=== PATIENT | female | born 1980 | race Caucasian/White ===

== ENCOUNTER 2016-12-06 16:08 | Inpatient (IN) | payer MEDICAID ==
[~2016-12-06] VITALS: Ht 142.2 cm; Wt 64.8 kg
[~2016-12-06 16:08] MED LIST: FAMO20TA18 PO; PRENAT PO; UDMYL PO
[2016-12-06 16:25] VITALS: Ht 142.2 cm; Wt 64.8 kg
--- NOTE | 2016-12-06 17:04 | RADRPT ---
PROCEDURE: US OB. CLINICAL INDICATION: Size and dates , IUGR TECHNIQUE: Multiple sonographic images of the pelvis and gravid uterus were obtained. The images were reviewed on a PACS workstation. COMPARISON: 10/18/2016 FINDINGS: There is a single viable intrauterine gestation. Cardiac activity is present with 123 beats per min mashpee. There is a vertex presentation. The placenta is posterior fundal. There is no evidence for an abruption or placenta previa. There is a normal amount of amniotic fluid with an DEWEY = 15.9 cm. Measurements were made in order to determine age. The results are as follows: BPD =8.9 cm HC =32.2 cm AC =33.4 cm FL =7.2 cm Estimated gestational age of approximately 36 weeks and 4 days based on ultrasound measurements. Clinical age: 37 weeks and 1 day. The estimated date of delivery is 12/30/16, based on ultrasound measurements. The EFW = 3080 g, 52.3%, based on LMP age. RPTAT: AA IMPRESSION: Single viable intrauterine gestation of approximately 36 weeks and 4 days based on ultrasound measu rements. .Ryan Sherman MD, Date Time Electronically viewed and signed by .Ryan Sherman MD, on 12/06/2016 17:03 .S/
--- NOTE | 2016-12-06 17:04 | RADRPT ---
PROCEDURE: US OB biophysical profile. CLINICAL INDICATION: decreased movements, IUGR TECHNIQUE: Multiple sonographic images of the pelvis were obtained. The images were reviewed on a PACS workstation. COMPARISON: 10/18/2016 FINDINGS: There is a single viable intrauterine gestation. Cardiac activity is present with 123 beats per min douglas. There is a vertex presentation. The placenta is posterior fundal. There is no evidence of placental abruption. There is a normal amount of amniotic fluid with an DEWEY = 15.9 cm. Biophysical profile: movement 2/2 tone 2/2. breathing 2/2 DEWEY 2/2 Total 05/31 RPTAT: AA . IMPRESSION: Normal biophysical profile. . .Ryan Sherman MD, MD Date Time Electronically viewed and signed by .Ryan Sherman MD, MD on 12/06/2016 17:04 .S/
[2016-12-06] MEDS: LACTATED RINGER'S 1,000 ML IV SCH ×2 (18:15→21:21)
[2016-12-06 18:50] LABS: BASOPHILS % 0.4 % (0.0-2.0); EOSINOPHILS # 0.1 10^3/ul (0.0-0.5); EOSINOPHILS % 0.9 % (0.0-7.0); HEMATOCRIT 34.2 % (37.0-47.0); HEMOGLOBIN 11.8 g/dl (12.0-16.0); LYMPHOCYTES # 1.3 10^3/ul (0.8-2.9); LYMPHOCYTES % 14.6 % (15.0-51.0); MEAN CORPUSCULAR HEMOGLOBIN 31.2 pg (29.0-33.0); MEAN CORPUSCULAR HGB CONC 34.3 g/dl (32.0-37.0); MEAN CORPUSCULAR VOLUME 90.9 fl (82.0-101.0); MEAN PLATELET VOLUME 7.8 fl (7.4-10.4); MONOCYTE # 0.5 10^3/ul (0.3-0.9); MONOCYTES % 6.1 % (0.0-11.0); NEUTROPHIL # 6.7 10^3/ul (1.6-7.5); PLATELET COUNT 210 10^3/UL (140-440); RED BLOOD COUNT 3.77 10^6/ul (4.20-5.40); RED CELL DISTRIBUTION WIDTH 13.8 % (11.5-14.5); UNCORRECTED WBC 8.6 10^3/ul (4.8-10.8); WHITE BLOOD COUNT 8.6 10^3/ul (4.8-10.8)
[2016-12-06 19:01] LABS: CONDITION 1
[2016-12-06 19:02] LABS: INR 0.91; PARTIAL THROMBOPLASTIN TIME 24.9 Sec (25.0-35.0); PROTIME 12.2 Sec (12.2-14.2)
--- NOTE | 2016-12-06 20:59 | TRIAGE ---
OB Triage Datetime Report Generated by CPN: 12/06/2016 20:58 Datetime: 12/06/2016 20:55 Labor Evaluation Frequency: 2-4 Monitor Mode: External Duration (sec)2399: 70-90 Pattern: Normal: <= 5 Contractions in 10 Minutes Heart Rate FHR Baseline Rate: 140 Monitor Mode: External US FHR Baseline Changes: No Baseline Change Variability: Moderate 6-25 bpm Decelerations: None Category: Category I Datetime: 12/06/2016 20:24 Vaginal Exam Dilatation (cms): 1.0 Effacement (%): 80 Station: -1 Exam By: DR. MONROY Lie 'A': Unable to Assess Datetime: 12/06/2016 20:00 Labor Evaluation Frequency: 90-110 Monitor Mode: External Duration (sec)2399: 2-4 Pattern: Normal: <= 5 Contractions in 10 Minutes Heart Rate FHR Baseline Rate: 135 Monitor Mode: External US FHR Baseline Changes: No Baseline Change Variability: Moderate 6-25 bpm Accelerations: 15X15 Decelerations: None Category: Category I Datetime: 12/06/2016 19:31 Maternal Assessment Level of Consciousness: Fully Conscious DTR's/Clonus: DTRs 2+; No Clonus Headache: Denies Blurred Vision: No Respiratory Effort: Unlabored; Regular Rhythm; Equal Expansion Breath Sounds, Left: Clear and Equal Breath Sounds, Right: Clear and Equal Nausea/Vomiting: Denies RUQ Epigastric Pain: Denies Facial Edema: None Fall Risk Assessment History of Falling: (0) No Secondary Diagnosis: (0) No Ambulatory Aid: (0) Bedrest/Nurse Assist IV Therapy: (20) Yes Gait: (0) Normal/Bedrest/Immobile Mental Status: (0) Oriented to Own Ability Fall Score: 20 Fall Risk Score Definition: No Risk: No action required Datetime: 12/06/2016 19:30 Labor Evaluation Frequency: 2-4 Monitor Mode: External Duration (sec)2399: 80-100 Pattern: Normal: <= 5 Contractions in 10 Minutes Heart Rate FHR Baseline Rate: 135 Monitor Mode: External US FHR Baseline Changes: No Baseline Change Variability: Moderate 6-25 bpm Accelerations: 15X15 Decelerations: None Category: Category I Pain Presence: None/Denies Pain Type: N/A Pain Assessment Comments: pt. denies having pain, denies feeling uc's Datetime: 12/06/2016 18:28 Labor Evaluation Frequency: 23-5 Monitor Mode: External Duration (sec)2399: 50-70 Pattern: Normal: <= 5 Contractions in 10 Minutes Resting Tone [place]: Relaxed Heart Rate FHR Baseline Rate: 135 Monitor Mode: External US Variability: Moderate 6-25 bpm Accelerations: 10X10 Decelerations: None Category: Category I Pain Assessment Pain Scale: 0 Pain Presence: None/Denies Pain Type: N/A Pain Goal: 3 Pain Relief Measures: Comfort Measures Datetime: 12/06/2016 17:58 Stage of : OB Triage Datetime: 12/06/2016 17:40 Labor Evaluation Frequency: 4-6 Monitor Mode: External Duration (sec)2399: 50-70 Pattern: Normal: <= 5 Contractions in 10 Minutes Resting Tone [place]: Relaxed Contraction Comments: DENIES FEELING Heart Rate FHR Baseline Rate: 125 Monitor Mode: External US Variability: Moderate 6-25 bpm Accelerations: 10X10 Decelerations: None Category: Category I Pain Assessment Pain Scale: 0 Pain Presence: None/Denies Pain Type: N/A Pain Goal: 3 Pain Relief Measures: Comfort Measures Datetime: 12/06/2016 16:34 Stage of : OB Triage Datetime: 12/06/2016 16:21 Stage of : OB Triage Assessment Type: Triage Maternal Assessment Level of Consciousness: Fully Conscious DTR's/Clonus: DTRs 2+; No Clonus Headache: Denies Blurred Vision: No Respiratory Effort: Unlabored; Regular Rhythm; Equal Expansion Breath Sounds, Left: Clear and Equal Breath Sounds, Right: Clear and Equal Nausea/Vomiting: Denies RUQ Epigastric Pain: Denies Lower Extremities Edema: None Degree: None Upper Extremities Edema: None Degree: None Facial Edema: None Temperature Route: Axillary Fall Risk Assessment History of Falling: (0) No Secondary Diagnosis: (0) No Ambulatory Aid: (0) Bedrest/Nurse Assist IV Therapy: (0) No Gait: (0) Normal/Bedrest/Immobile Mental Status: (0) Oriented to Own Ability Fall Score: 0 Fall Risk Score Definition: No Risk: No action required Labor Evaluation Frequency: X1 Monitor Mode: External Duration (sec)2399: 50 Quality: Mild Pattern: Normal: <= 5 Contractions in 10 Minutes Intensity IUP (mmHg): DENIES FEELING Resting Tone [place]: Relaxed Heart Rate FHR Baseline Rate: 125 Monitor Mode: External US Variability: Moderate 6-25 bpm Accelerations: 15X15 Decelerations: None Category: Category I Pain Assessment Pain Scale: 0 Pain Presence: None/Denies Pain Goal: 3 Pain Relief Measures: Comfort Measures Datetime: 12/06/2016 16:20 Time of Arrival: 12/06/2016 16:00 EGA: 37.1 Arrived By: Ambulatory Arrived From: Dr. Office Chief Complaint: SENT FROM DR OFFICE TO R/O IUGR, EFW, BPP Movement: Present Contractions: Denies/Absent Rupture of Membranes: Denies Vaginal Bleeding: None Vaginal Discharge: Present Recent Sexual Intercouse: Denies Abdominal Trauma: Not Applicable Patient Complaints: None Initial Plan: MONITOR, BPP, EFW Datetime: 10/17/2016 23:50 Fall Score: 0 Fall Risk Score Definition: No Risk: No action required Datetime: 10/17/2016 23:14 EGA: 30.1 Datetime: 10/07/2016 01:30 EGA: 28.4 Datetime: 10/07/2016 01:23 Fall Score: 0 Fall Risk Score Definition: No Risk: No action required
[2016-12-06] MEDS ORDERED: METHYLERGONOVINE 0.2 MG INJ IM PRN (21:00)
[2016-12-06] MEDS ORDERED: CARBOPROST 250 MCG INJ IM PRN (21:00)
[2016-12-06] MEDS ORDERED: CEFAZOLIN 2 GM/50 ML (PMX) 50 ML IVPB ONE (21:00)
[2016-12-06] MEDS ORDERED: OXYTOCIN 30 UNITS/LR 500 ML IV PRN (21:00)
[2016-12-06] MEDS ORDERED: OXYTOCIN 30 UNITS/LR 500 ML IV SCH (21:00)
[2016-12-06] MEDS ORDERED: MISOPROSTOL 200 MCG TAB PR PRN (21:00)
[2016-12-06 21:09] VITALS: BP 93/52; PULSE 75; RESP 18
[2016-12-06] MEDS ORDERED: morphine SULFATE/PF (10 MG/10 ML) INJ ONE (22:24)
[2016-12-06] MEDS ORDERED: ONDANSETRON 4 MG INJ ONE (22:49)
[2016-12-06] MEDS ORDERED: KETOROLAC 30 MG INJ ONE (22:49)
[2016-12-06] MEDS ORDERED: METOCLOPRAMIDE 10 MG INJ ONE (22:49)
[2016-12-06] MEDS ORDERED: EPHEDrine SULFATE 50 MG/5 ML SYG ONE (22:50)
[2016-12-06] MEDS ORDERED: OXYTOCIN 30 UNITS/LR 500 ML IV ONE (23:25)
--- NOTE | 2016-12-06 23:27 | HP ---
Date/Time of Note Date/Time of Note DATE: 12/06/16 TIME: 23:26 OB - History Hx of Present Free Text/Dictation @37+wks GA with Hx of previous c.section in labor : 3 Para: 1 Care: Good Care Ultrasounds: Normal mid trimester US Obstetrical Complications: None Medical Complications: None Past Family/Social History * Past Medical, Surgical, Family and Obstetric Histories reviewed from chart. OB Admission Exam Vital Signs Vital Signs Vital Signs Date Time Temp Pulse Resp B/P Pulse Ox O2 Delivery O2 Flow Rate FiO2 12/06/16 21:09 98.1 75 18 93/52 Room Air Physical Exam Abdomen: WNL Extremities: Normal Reflexes: Normal Cervical Dilatation: 1cm Effacement: 75% Station: -1 Membranes: Intact Heart Rate: 140's Accelerations: Accelerations Present Decelerations: No Decelerations Varibility: Moderate Contractions on Admission: < 5 Minutes Apart Last 72 hours Lab Results CBC & BMP 12/06/16 18:15 OB Assessment/Plan Reason for admission: section Plan: Section Other plan: @37+wks GA with Hx of previous c.section in labor STEPHANIE MONROY M.D. Dec 06, 2016 23:27
--- NOTE | 2016-12-06 23:28 | OPR ---
Operative Report Planned Procedure Free Text/Dictation @37+wks GA with Hx of previous c.section in labor Procedure date Dec 06, 2016 Procedure(s) Repeat c/section Performed by: STEPHANIE MONROY M.D. Assisting provider: KIRSTIN LUCAS Anesthesiologist: REAGAN LUA MD Pre-procedure diagnosis @37+wks GA with Hx of previous c.section in labor Anesthesia Type: spinal Procedure Description Under satisfactory [] anesthesia, the patient was prepped and draped and placed in a supine position, tilted to the left. Pfannenstiel incision was made, carried through the subcutaneous tissue. Bleeders brought under control with electrocautery. Fascia incised to the length of the incision. Rectus muscles from the fascia, divided midline. Peritoneum exposed, entered through a transverse incision. Exploration of abdomen revealed gravid uterus. Bladder flap was developed. Transverse incision was made in the lower segment of the uterus. Amniotic sac ruptured. [] amniotic fluid noted. [] Nasal oropharyngeal suction was performed. The baby was handed to the team for immediate attention. The placenta was delivered manually intact. Uterine cavity was cleaned with wet sponge and drainage established. Uterus closed in 2 layers using [] in continuous fashion. Peritoneal cavity irrigated with warm saline. Sponge, needle and instrument count reported to be correct. Abdominal peritoneum closed with [] continuously. Rectus muscle approximated with []. Fascia closed with [], and skin closed with dermoband. Estimated blood loss [600 ]mL. Urine bag contained []mL of urine Post-Procedure Findings: Live Baby [], Apgars [] and [], weight [], position [], [] presentation []cord. Specimen removed: Yes Complications: None Pt Condition post procedure: stable Disposition: PACU Physician Certification I, the undersigned physician, hereby certify that I have discussed the procedure described in this consent form with this patient (or the patient's legal hospital insurance representative), including: * The risk and benefits of the procedure; * Any adverse reactions that may reasonably be expected to occur; * Any alternative efficacious methods of treatment which may be medically viable ; * The potential problems that may occur during recuperation; * Potential for blood transfusion and associated risks/benefits; and * Any research or economic interest I may have regarding this treatment. I further certify that the patient/legally responsible person was encouraged to ask question and that all questions were answered. STEPHANIE MONROY M.D. Dec 06, 2016 23:28
[2016-12-06] MEDS ORDERED: NALOXONE (0.4 MG/ML) INJ IV PRN (23:30)
[2016-12-06] MEDS ORDERED: MEPERIDINE 25 MG INJ IV PRN (23:30)
[2016-12-06] MEDS ORDERED: HYDROmorphONE (0.2 MG/ML) 10ML SYG IV PRN ×3 (23:30)
[2016-12-06] MEDS ORDERED: HYDROmorphONE 1 MG/ML SYG IV PRN ×3 (23:30)
[2016-12-06] MEDS ORDERED: METOCLOPRAMIDE 10 MG INJ IV PRN (23:30)
[2016-12-06] MEDS ORDERED: DIPHENHYDRAMINE 50 MG INJ IV PRN ×2 (23:30)
[2016-12-06] MEDS ORDERED: ONDANSETRON 4 MG INJ IV PRN ×2 (23:30)
--- NOTE | 2016-12-07 00:29 | DELSUM ---
Delivery Summary A-C Datetime Report Generated by CPN: 12/07/2016 00:29 DELIVERY PERSONNEL Aircraft Instrument Mechanic: [place], Ivy Tania MATERNAL INFORMATION Delivery Anesthesia: Spinal Medications in Delivery: SEE ANESTHESIA Estimated Blood Loss (ml): 600 Placenta Cultured: No Maternal Complications: None LABOR SUMMARY EDC: 12/26/2016 00:00 No. Babies in Womb: 1 Attempted: No Labor Anesthesia: None LABOR INFORMATION Reason for Induction: Postterm Oxytocin: N/A Group B Beta Strep: Negative Antibiotics # of Doses: 1 Antibiotics Time of Last Dose: 2246 Steroids Given: None Reason Steroids Not Administered: Not Applicable MEMBRANES Membranes Rupture Method: Artificial Rupture of Membranes: 12/06/2016 23:03 Length of Rupture (hr): 0.02 Amniotic Fluid Color: Clear Amniotic Fluid Amount: Moderate Amniotic Fluid Odor: Normal STAGES OF LABOR Stage 3 hr: 0 Stage 3 min: 1 CSECTION DELIVERY Primary Indication: Repeat Elective CSection Urgency: Non Elective CSection Incidence: Repeat Labor: No Labor Elective: Nonelective CSection Incision: Lower Uterine Transverse BABY A INFORMATION Infant Delivery Date/Time: 12/06/2016 23:04 Method of Delivery: Born in Route : No : N/A Forceps: N/A Vacuum Extraction: N/A Shoulder Dystocia : N/A SHOULDER DYSTOCIA BABY A Delivery Date/Time: 12/06/2016 23:04 PRESENTATION/POSITION BABY A Presentation: Cephalic Cephalic Presentation: Vertex Vertex Position: Left Occipital Anterior Breech Presentation: N/A PLACENTA INFORMATION BABY A Placenta Delivery Time : 12/06/2016 23:05 Placenta Method of Delivery: Manual Removal Placenta Status: Delivered SCORES BABY A Heart Rate 1 min: >100 bpm Resp Effort 1 min: Good Cry Reflex Irritability 1 min: Cough/Sneeze/Pulls Away Muscle Tone 1 min: Active Motion Color 1 min: Blue/Pale Resuscitation Effort 1 min: Tactile Stimulation SCORE 1 MIN: 8 Heart Rate 5 min: >100 bpm Resp Effort 5 min: Good Cry Reflex Irritability 5 min: Cough/Sneeze/Pulls Away Muscle Tone 5 min: Active Motion Color 5 min: Body Merkel, Extremit Blue Resuscitation Effort 5 min: Tactile Stimulation SCORE 5 MIN: 9 INFORMATION BABY A Gestational Age at Delivery: 37.1 Gestational Status: Early Term- 37- 38.6 Weeks Outcome : Liveborn Condition : Stable Sex: Female IDENTIFICATION/MEDS BABY A ID Band Number: [id number] ID Band Location: Right Leg; Left Arm Sensor Applied: Yes Sensor Number: [id number] Sensor Location : Cord Clamp Vitamin K Given : Not Given Erythromycin Given: Not Given WEIGHT/LENGTH BABY A Infant Birthweight (gm): 2730 Infant Weight (lb): 6 Weight (oz): 0 Infant Length (in): 17.00 Length (cm): 43.18 CORD INFORMATION BABY A No. Cord Vessels: 3 Nuchal Cord : Around Neck x1, Loose Cord Blood Taken: Yes Infant Suction: Mouth; Nose ASSESSMENT BABY A Complications: None Physical Findings at Delivery: Within Normal Limits Respirations: Appears Normal Director Music/ALS Called : No Care By: Mare MALONE RN Transferred To: Remains with Mother
[2016-12-07 03:00] VITALS: BP 113/63; PULSE 72; RESP 18
[2016-12-07] MEDS ORDERED: OXYTOCIN 30 UNITS/LR 500 ML IV PRN (03:30)
[2016-12-07] MEDS ORDERED: MISOPROSTOL 200 MCG TAB PR PRN (03:30)
[2016-12-07] MEDS ORDERED: OXYCODONE/ACETAMINOPHEN (5/325) TAB PO PRN (03:30)
[2016-12-07] MEDS ORDERED: LANOLIN 7 GM TUBE TOP PRN (03:30)
[2016-12-07] MEDS ORDERED: METHYLERGONOVINE 0.2 MG INJ IM PRN (03:30)
[2016-12-07] MEDS ORDERED: CARBOPROST 250 MCG INJ IM PRN (03:30)
[2016-12-07 04:00] VITALS: BP 96/58; PULSE 76; RESP 19
[2016-12-07] MEDS: LACTATED RINGER'S 1,000 ML IV SCH ×3 (04:28→19:26)
[2016-12-07 07:24] LABS: BASOPHILS % 0.2 % (0.0-2.0); EOSINOPHILS % 0.2 % (0.0-7.0); HEMATOCRIT 32.7 % (37.0-47.0); HEMOGLOBIN 11.4 g/dl (12.0-16.0); LYMPHOCYTES # 1.1 10^3/ul (0.8-2.9); LYMPHOCYTES % 11.1 % (15.0-51.0); MEAN CORPUSCULAR HEMOGLOBIN 31.1 pg (29.0-33.0); MEAN CORPUSCULAR HGB CONC 34.7 g/dl (32.0-37.0); MEAN CORPUSCULAR VOLUME 89.4 fl (82.0-101.0); MEAN PLATELET VOLUME 7.7 fl (7.4-10.4); MONOCYTE # 0.5 10^3/ul (0.3-0.9); MONOCYTES % 5.2 % (0.0-11.0); NEUTROPHIL # 8.2 10^3/ul (1.6-7.5); NEUTROPHILS % 83.3 % (39.0-77.0); PLATELET COUNT 191 10^3/UL (140-440); RED BLOOD COUNT 3.65 10^6/ul (4.20-5.40); RED CELL DISTRIBUTION WIDTH 13.6 % (11.5-14.5); UNCORRECTED WBC 9.9 10^3/ul (4.8-10.8); WHITE BLOOD COUNT 9.9 10^3/ul (4.8-10.8)
[2016-12-07 07:43] LABS: CONDITION 1
[2016-12-07 08:20] VITALS: BP 94/55; PULSE 74; RESP 18
[2016-12-07] MEDS ORDERED: INFLUENZA VIRUS VACCINE 0.5 ML SYG IM* ONE (09:00)
[2016-12-07] MEDS: SENNA/DOCUSATE NA (8.6MG/50MG) TAB PO SCH ×2 (09:19→21:05)
[2016-12-07 12:15] VITALS: BP 93/50; PULSE 71; RESP 17
[2016-12-07] MEDS: KETOROLAC 30 MG INJ IV PRN ×2 (12:50→21:06)
[2016-12-07 16:30] VITALS: BP 90/51; PULSE 78; RESP 16
--- NOTE | 2016-12-07 17:42 | QN ---
Documentation Comment POD#1 is stable afebrile No VB +Flatus Adequate urine VS stable GEn NAD Abd soft NT ND Incision intact Genitalia No blood at perinium --->Ambulation ---->Discharge plan tomorrow STEPHANIE MONROY M.D. Dec 07, 2016 17:42
[2016-12-07 19:30] VITALS: BP 87/51; PULSE 82; RESP 20
[2016-12-07] MEDS: IBUPROFEN 600 MG TAB PO SCH (23:58)
[2016-12-08] MEDS ORDERED: IBUPROFEN 600 MG TAB PO SCH
[2016-12-08] MEDS: LACTATED RINGER'S 1,000 ML IV SCH (03:26)
[2016-12-08 04:25] VITALS: BP 105/52; PULSE 82; RESP 20
[2016-12-08] MEDS: IBUPROFEN 600 MG TAB PO SCH ×3 (05:31→18:02)
[2016-12-08 08:00] VITALS: BP 91/51; PULSE 65; RESP 17
[2016-12-08] MEDS: SENNA/DOCUSATE NA (8.6MG/50MG) TAB PO SCH ×2 (09:33→20:48)
[2016-12-08 16:30] VITALS: BP 95/57; PULSE 75; RESP 16
[2016-12-08 20:48] VITALS: BP 97/53; PULSE 87; RESP 18
--- NOTE | 2016-12-08 23:28 | QN ---
Documentation Comment POD#2 is stable afebrile No VB +Bm +voids VS stable GEn NAD Abd soft NT ND Incision intact Genitalia No blood at perinium --->Ambulation ---->Discharge plan tomorrow STEPHANIE MONROY M.D. Dec 08, 2016 23:28
[2016-12-09] MEDS: IBUPROFEN 600 MG TAB PO SCH ×3 (00:37→11:45)
[2016-12-09 04:00] VITALS: BP 93/54; PULSE 67; RESP 18
[2016-12-09 08:00] VITALS: BP 99/60; PULSE 78; RESP 18
[2016-12-09] MEDS ORDERED: DIPHTH/TET/ACEL PERTUSS (ADULT) 0.5 ML VIAL IM* ONE (09:00)
[2016-12-09] MEDS: SENNA/DOCUSATE NA (8.6MG/50MG) TAB PO SCH (09:32)
== END 2016-12-09 15:00 | disposition home or self-care (01) | DRG 766 ==
LOC: OBT 16:08 → L-D 16:08 → OBT 20:30 → L-D 20:30 → PP1 12-07 03:14
PROVIDERS: ADMIT Obstetrics & Gynecology; ATTEND Obstetrics & Gynecology
PROC: 10D00Z1 Extraction of Products of Conception, Low, Open Approach (ICD-10-PCS; principal; 2016-12-06 23:00)
DX: O34.211 Maternal care for low transverse scar from previous cesarean delivery (principal); O09.523 Supervision of elderly multigravida, third trimester; Z3A.37 37 weeks gestation of pregnancy; Z37.0 Single live birth
CPT/HCPCS: 36415; 76815; 76818; 85025; 85610; 85730; 86592; 86850; 86900; 86901; 90686; 90715; 94760; 96360; 96361; 99464; G0463; J0690; J1200; J1885; J2210; J2274; J2405; J2590; J2765; J7120

== ENCOUNTER 2016-12-31 11:40 | Emergency (ER) | payer MEDICAID ==
[~2016-12-31] VITALS: Wt 54.0 kg
[2016-12-31] MEDS ORDERED: CEPH-443 PO (14:46)
[2016-12-31] MEDS ORDERED: BENZ68FO TP (14:47)
--- NOTE | 2016-12-31 14:59 | ERD ---
ER Documentation Chief Complaint Date/Time DATE: 12/31/16 TIME: 14:55 Chief Complaint ON , WANTS TO HAVE CHECK UP HPI This is a 36-year-old female presents to the ER for wound check after on December 06. Patient states that 2 days ago her wound started to open. Patient went to her OB and was told that everything was normal. Patient does not have any fevers or chills. She states that there is a little bit of discharge from the area. Discharge is clear to martinez. ROS 12 point review of systems was done, all negative except per HPI. Medications Home Meds Active Scripts Cephalexin* (Keflex*) 500 Mg Capsule, 500 MG PO QID for 7 Days, CAP Prov:DOMENICA LOBATO Pete 12/31/16 Allergies Allergies: Coded Allergies: No Known Drug Allergies (Verified Allergy, Unknown, 10/07/16) PMhx/Soc Medical and Surgical Hx: pt denies Medical Hx History of Surgery: Yes (c/s x 2) Anesthesia Reaction: No Hx Neurological Disorder: No Hx Respiratory Disorders: No Hx Cardiac Disorders: No Hx Psychiatric Problems: No Hx Miscellaneous Medical Probl: No Hx Alcohol Use: No Hx Substance Use: No Hx Tobacco Use: No Smoking Status: Never smoker Physical Exam Vitals Vital Signs Date Time Temp Pulse Resp B/P Pulse Ox O2 Delivery O2 Flow Rate FiO2 12/31/16 11:44 97.8 89 20 139/78 99 Physical Exam GENERAL: The patient is well developed and appropriate for usual state of health , in no apparent distress. HEENT: Atraumatic. CHEST: Clear to auscultation bilaterally. There are no rales, wheezes or rhonchi. HEART: Regular rate and rhythm. No murmurs, clicks, rubs or gallops. NEURO: Alert and oriented. SKIN: small area of wound dehiscence with some martinez discharge. no surrounding erythema. Procedures/MDM This is a 36-year-old female presents to the ER for wound check. At this time patient appears to have a seroma. Because there is some discharge will be sent home with Keflex. Patient however is afebrile and well-appearing. I do not believe that this is a severe infection. This patient was examined by myself and by Dr. Alberto. Patient is to follow-up with her primary care doctor within 1-2 days return to ER sooner if symptoms worsen. My medical decision making was shared with the patient she understands and agrees with plan. Departure Diagnosis: Primary Impression: Seroma Condition: Stable Patient Instructions: Seroma, Postsurgical Additional Instructions: Llame al doctor MAANA y vazquez swetha ROMINA PARA DENTRO DE 1-2 GREENE.Dgale a la secretaria que nosotros le instruimos hacer esta romina.Avise o llame si workman condicin se empeora antes de la romina. Regresa aqui si peor o no mejor. DOMENICA LOBATO Dec 31, 2016 14:59
== END 2016-12-31 15:09 | disposition home or self-care (01) ==
LOC: FTE 11:40
DX: O90.2 Hematoma of obstetric wound (principal)
CPT/HCPCS: 99283

== ENCOUNTER 2017-01-07 04:11 | Inpatient (IN) | payer MEDICAID ==
[~2017-01-07] VITALS: Ht 119.4 cm; Wt 55.5 kg
[~2017-01-07 04:11] MED LIST changes: +CEPH-443 PO; -FAMO20TA18 PO; -PRENAT PO; -UDMYL PO
[2017-01-07] MEDS ORDERED: HYDROmorphONE 1 MG/ML SYG IV STA ×2 (07:16→11:27)
[2017-01-07] MEDS ORDERED: SOD CHLORIDE 0.9% 1,000 ML IV STA (07:16)
[2017-01-07] MEDS ORDERED: ONDANSETRON 4 MG INJ IV STA (07:16)
[2017-01-07 07:50] LABS: ADD SCAN DIFF NO
[2017-01-07 07:53] LABS: BASOPHIL # 0.1 10^3/ul (0.0-0.1); BASOPHILS % 0.6 % (0.0-2.0); EOSINOPHILS % 0.2 % (0.0-7.0); HEMATOCRIT 40.1 % (37.0-47.0); HEMOGLOBIN 13.4 g/dl (12.0-16.0); LYMPHOCYTES % 11.8 % (15.0-51.0); MEAN CORPUSCULAR HEMOGLOBIN 29.3 pg (29.0-33.0); MEAN CORPUSCULAR HGB CONC 33.4 g/dl (32.0-37.0); MEAN CORPUSCULAR VOLUME 87.7 fl (82.0-101.0); MEAN PLATELET VOLUME 9.5 fl (7.4-10.4); MONOCYTE # 0.4 10^3/ul (0.3-0.9); MONOCYTES % 4.1 % (0.0-11.0); NEUTROPHIL # 7.1 10^3/ul (1.6-7.5); NEUTROPHILS % 82.8 % (39.0-77.0); PLATELET COUNT 256 10^3/UL (140-415); RED BLOOD COUNT 4.57 10^6/ul (4.20-5.40); RED CELL DISTRIBUTION WIDTH 12.1 % (11.5-14.5); WHITE BLOOD COUNT 8.6 10^3/ul (4.8-10.8)
[2017-01-07 08:13] LABS: ADD UMIC YES; URINE BILIRUBIN (Dip) NEGATIVE (NEGATIVE); URINE BLOOD (Dip) 1+ (NEGATIVE); URINE COLOR LT. YELLOW (YELLOW); URINE GLUCOSE (Dip) NEGATIVE (NEGATIVE); URINE KETONES (Dip) NEGATIVE (NEGATIVE); URINE LEUKOCYTE ESTERASE (Dip) NEGATIVE (NEGATIVE); URINE NITRITE (Dip) NEGATIVE (NEGATIVE); URINE TOTAL PROTEIN (Dip) NEGATIVE (NEGATIVE); URINE UROBILINOGEN (Dip) 0.2 E.U./dL (0.1-1.0)
[2017-01-07 08:23] LABS: ALBUMIN 4.4 g/dl (3.3-4.9); POTASSIUM 3.8 mmol/L (3.5-5.1)
[2017-01-07 08:25] LABS: CREATININE 0.61 mg/dl (0.44-1.00)
[2017-01-07 08:26] LABS: ALBUMIN/GLOBULIN RATIO 1.33; BILIRUBIN,INDIRECT 0.3 mg/dl (0-1.1); BILIRUBIN,TOTAL 0.3 mg/dl (0.2-1.3); CALCIUM 9.4 mg/dl (8.4-10.2); TOTAL PROTEIN 7.7 g/dl (6.1-8.1)
[2017-01-07 08:33] VITALS: TEMP 98.7
--- NOTE | 2017-01-07 08:41 | RADRPT ---
PROCEDURE: Abdominal Ultrasound (right upper quadrant). CLINICAL INDICATION: Abdominal pain TECHNIQUE: Multiple real-time longitudinal and transverse images of the right upper quadrant of th e abdomen were acquired utilizing a curved array transducer. Images were reviewed on a high-resoluti on PACS workstation. COMPARISON: Quadrant ultrasound 10/18/2016 FINDINGS: The liver is normal in size and echogenicity. No focal masses are identified. There is mild to mo derate extrahepatic ductal dilatation. The common bile duct measures 9.8 mm in diameter. Gallstones are identified within the gallbladder. There is mild to moderate gallbladder wall thickening measu ring up to 1.1 cm. The gallbladder wall appears edematous.. The visualized portions of the pancreas are unremarkable with obscuration of the tail of the pancrea s. No free fluid is identified. There is no evidence of right hydronephrosis or renal calcification. The right kidney measures 10.0 cm in length. The visualized portions of the aorta and inferior vena cava are within normal limits. IMPRESSION: 1. Cholelithiasis with moderate gallbladder wall thickening and suggested gallbladder wall edema. These findings can be seen in acute cholecystitis. 2. Mild to moderate common bile duct dilatation. Recommend correlation with serum bilirubin and co nsider MRCP or ERCP as clinically indicated. RPTAT: KK .Wayne Lino MD, Date Time Electronically viewed and signed by .Wayne Lino MD, MD on 01/07/2017 08:41 .B/
[2017-01-07 08:43] LABS: URINE RBCS 0-2 /HPF (0)
[2017-01-07 08:44] LABS: BACTERIA,URINE FEW
[2017-01-07] MEDS ORDERED: AMPICILLIN/SULB 3 GM/NS (PMX) 100 ML IVPB ONE (09:00)
--- NOTE | 2017-01-07 09:20 | RADRPT ---
PROCEDURE: XR Chest. CLINICAL INDICATION: chest pain, abdominal pain TECHNIQUE: Single frontal view of the chest was obtained COMPARISON: None FINDINGS: The heart and mediastinum are within normal limits. The lungs are clear. There is no pleural effusion or pneumothorax. RPTAT: AA IMPRESSION: No acute disease. .Ryan Sherman MD, MD Date Time Electronically viewed and signed by .Ryan Sherman MD, on 01/07/2017 09:20 .S/
--- NOTE | 2017-01-07 09:44 | ERA ---
ER Documentation Chief Complaint Date/Time DATE: 01/07/17 TIME: 09:41 Chief Complaint AP since 1400 01/06 HPI This is a 36-year-old female presenting to the emergency department complaining of severe right upper quadrant pain, nausea and vomiting since last night. Patient admits to having chills. Patient denies taking any medication for pain. Patient recently had a 5 weeks ago and was given Keflex, patient states that she still taking it and she is compliant with her medications. Patient is not breast-feeding. Last meal was at 10 PM and was a papaya. ROS All systems reviewed and are negative except as per history of present illness. Medications Home Meds Active Scripts Cephalexin* (Keflex*) 500 Mg Capsule, 500 MG PO QID for 7 Days, CAP Prov:DOMENICA LOBATO 12/31/16 Allergies Allergies: Coded Allergies: No Known Drug Allergies (Verified Allergy, Unknown, 01/07/17) PMhx/Soc History of Surgery: Yes (c/s x 2) Anesthesia Reaction: No Hx Neurological Disorder: No Hx Respiratory Disorders: No Hx Cardiac Disorders: No Hx Psychiatric Problems: No Hx Miscellaneous Medical Probl: Yes (GALLSTONE) Hx Alcohol Use: No Hx Substance Use: No Hx Tobacco Use: No Physical Exam Vitals Vital Signs Date Time Temp Pulse Resp B/P Pulse Ox O2 Delivery O2 Flow Rate FiO2 01/07/17 08:33 98.7 78 16 111/67 100 Room Air 01/07/17 04:52 99.7 77 18 122/64 96 Physical Exam GENERAL: well-developed/well-nourished, in no apparent distress, non-toxic appearing HENT: NC/AT, moist mucous membranes EYES: Conjunctiva normal NECK: Supple, no lymphadenopathy PULM: CTA bilaterally, no rales, rhonchi, or wheezing heard CV: Normal S1S2, RRR, good capillary refill GI: Soft, non-distended, tender to palpation in right upper quadrant, positive Rivas sign Normal bowel sounds, no masses or organomegaly felt on exam No gross peritonitis, no bruits Negative Rovsing, negative McBurney's point, Negative CVAT BACK: No masses EXT: No clubbing, cyanosis, or edema NEURO: Alert and Orientated SKIN: Intact, normal turgor PSYCH: Normal mood and mentation Result Diagram: 01/07/17 0725 01/07/17 0725 Results 24 hrs Laboratory Tests Test 01/07/17 07:25 01/07/17 07:30 Alanine Aminotransferase (ALT/SGPT) 32IU/L Albumin 4.4g/dl Albumin/Globulin Ratio 1.33 Alkaline Phosphatase 123IU/L Anion Gap 18 Aspartate Amino Transf (AST/SGOT) 28IU/L Basophils # 0.110^3/ul Basophils % 0.6% Blood Urea Nitrogen 7mg/dl Calcium Level 9.4mg/dl Carbon Dioxide Level 25mmol/L Chloride Level 102mmol/L Creatinine 0.61mg/dl Direct Bilirubin 0.00mg/dl Eosinophils # 0.010^3/ul Eosinophils % 0.2% Globulin 3.30g/dl Glucose Level 88mg/dl Hematocrit 40.1% Hemoglobin 13.4g/dl Indirect Bilirubin 0.3mg/dl Lipase 109U/L Lymphocytes # 1.010^3/ul Lymphocytes % 11.8% Mean Corpuscular Hemoglobin 29.3pg Mean Corpuscular Hemoglobin Concent 33.4g/dl Mean Corpuscular Volume 87.7fl Mean Platelet Volume 9.5fl Monocytes # 0.410^3/ul Monocytes % 4.1% Neutrophils # 7.110^3/ul Neutrophils % 82.8% Nucleated Red Blood Cells # 0.010^3/ul Nucleated Red Blood Cells % 0.0/100WBC Platelet Count 38552^3/UL Potassium Level 3.8mmol/L Red Blood Count 4.5710^6/ul Red Cell Distribution Width 12.1% Sodium Level 141mmol/L Total Bilirubin 0.3mg/dl Total Protein 7.7g/dl White Blood Count 8.610^3/ul Urine Bacteria FEW Urine Bilirubin NEGATIVE Urine Clarity CLEAR Urine Color LT. YELLOW Urine Epithelial Cells FEW Urine Glucose NEGATIVE% Urine Hemoglobin 1+ Urine Ketones NEGATIVE Urine Leukocyte Esterase NEGATIVE Urine Microscopic RBC 0-2/HPF Urine Microscopic WBC 0-2/HPF Urine Nitrite NEGATIVE Urine Specific [place] <=1.005 Urine Total Protein NEGATIVE Urine Urobilinogen 0.2 E.U./dL Urine pH 6.0 Current Medications Medications (Trade) Dose Ordered Sig/Kilo Route PRN Reason Start Time Stop Time Status Last Admin Dose Admin Sodium Chloride (NS) 1,000 ml @ 1,000 mls/hr Q1H STAT IV 01/07/17 07:16 01/07/17 08:15 DC 01/07/17 07:34 Ondansetron HCl (Zofran Inj) 4 mg ONCE STAT IV 01/07/17 07:16 01/07/17 07:18 DC 01/07/17 07:34 Hydromorphone HCl 0.5 mg 0.5 mg ONCE STAT IV 01/07/17 07:16 01/07/17 07:18 DC 01/07/17 07:34 Ampicillin Sodium/ Sulbactam Sodium (Unasyn 3gm/NS (Pmx)) 100 ml @ 100 mls/hr ONCE ONCE IVPB 01/07/17 09:00 01/07/17 09:59 DC 01/07/17 09:53 Procedures/MDM This is a 36-year-old female presenting to the emergency department complaining of right upper quadrant pain nausea and vomiting since last night. Her symptoms are most consistent with acute cholecystitis. On examination patient has stable vital signs, she did not appear toxic. I have a low suspicion for cholangitis or peritonitis. Patient had positive Rivas sign. Patient was given 1 L fluids and Dilaudid for pain with Zofran. Lab work was drawn. CBC did not show any evidence of leukocytosis or anemia. CMP did not show any evidence of renal, liver, or electrolyte abnormalities. Lipase was normal. UA did not show any evidence of hemoglobin or urinary tract infection. Gallbladder ultrasound stated: 1. Cholelithiasis with moderate gallbladder wall thickening and suggested gallbladder wall edema. These findings can be seen in acute cholecystitis. 2. Mild to moderate common bile duct dilatation. Recommend correlation with serum bilirubin and consider MRCP or ERCP as clinically indicated. I consulted my supervising physician in which he consulted the hospitalist on-call for admission for further evaluation management. Patient stable for transfer Departure Diagnosis: Primary Impression: Cholecystitis Condition: VINEET Mcclain PA-C Jan 07, 2017 09:43
[2017-01-07] MEDS ORDERED: ACETAMINOPHEN 325 MG TAB PO PRN (10:30)
[2017-01-07] MEDS ORDERED: ONDANSETRON 4 MG INJ IV PRN ×2 (10:30→13:30)
[2017-01-07 12:51] VITALS: BP 103/60; PULSE 66; RESP 16; Ht 119.4 cm; Wt 55.5 kg
[2017-01-07] MEDS ORDERED: BISACODYL 10 MG SUPP PR PRN (13:30)
[2017-01-07] MEDS ORDERED: NACL 0.9% 3 ML SYG IV SCH (13:30)
[2017-01-07] MEDS ORDERED: HYDROCODONE/APAP (5/325) TAB PO PRN (13:30)
[2017-01-07] MEDS ORDERED: MAGNESIUM HYDROXIDE 30ML CUP PO PRN (13:30)
[2017-01-07] MEDS ORDERED: DOCUSATE SODIUM 100 MG CAP PO PRN (13:30)
[2017-01-07] MEDS: D5W-0.45 NACL + KCL 20 MEQ 1,000 ML IV SCH ×2 (15:31→23:32)
[2017-01-07] MEDS: morphine 2 MG INJ IV PRN ×3 (15:32→23:39)
[2017-01-07] MEDS ORDERED: ACET1TAB40 PO (15:58)
--- NOTE | 2017-01-07 17:10 | CONS ---
Date/Time of Note Date/Time of Note DATE: 01/07/17 TIME: 16:06 Assessment/Plan Assessment/Plan Additional Assessment/Plan Assessment : RUQ abdominal pain/nausea & vomiting Cholelithiasis/Dilated CBD/Normal LFT's R/O Cholecystitis R/O choledocholithiasis S/P section 2016 Plan: MRCP HIDA scan continue antibiotics surgery consult pain management Consultation Date/Type/Reason Admit Date/Time Jan 07, 2017 at 10:05 Date of Consultation: Jan 07, 2017 Reason for Consultation right upper quadrant pain Hx of Present Illness 36 y/o female admitted because of acute cholecystitis with cholelithiasis.Present condition started 1 day prior to admission as sudden onset of right upper quadrant pain with nausea and vomiting..No fever but claims to be feeling warm..Patient claims to have been diagnosed with cholelithiasis during her .Patient had section 5 weeks ago. Patient had ultrasound findings of cholelithiasis ,gall bladder wall thickening with 9 mm common bile duct with normal liver function test except for alkaline phosphatase is minimally elevated raises the possibility of choledocholithiasis. .Patient had positive murphys sign raises also the possibility of cholecystitis . Hida amin and mrcp will be requested to confirm the diagnosis Constitutional: improved, no complaints Eyes: no complaints ENT: no complaints Respiratory: no complaints Cardiovascular: no complaints Gastrointestinal: decreased appetite, flatus, nausea, no complaints, pain, passing stool, vomiting, No blood, No constipation, No diarrhea Genitourinary: no complaints Musculoskeletal: no complaints Skin: no complaints Neurologic: no complaints Endocrine: no complaints Lymphatic: no complaints Psychological: nl mood/affect, no complaints Immunologic: no complaints Past Medical History Medical History: gallstones Past Surgical History Past Surgical Hx: other ( section ) Family History Significant Family History: hypertension Social History Alcohol Use: none Smoking Status: Never smoker Drug Use: none Exam/Review of Systems Vital Signs Vitals Vital Signs Date Time Temp Pulse Resp B/P Pulse Ox O2 Delivery O2 Flow Rate FiO2 01/07/17 12:51 99.1 66 16 103/60 98 Room Air Exam Constitutional: alert, oriented, well developed Psych: nl mood/affect, no complaints Head: atraumatic, normocephalic Eyes: EOMI, PERRL, nl conjunctiva, nl lids, nl sclera ENMT: nl external ears & nose, nl lips & teeth, nl nasal mucosa & septum Neck: non-tender, supple Respiratory: clear to auscultation, normal air movement Cardiovascular: nl pulses, regular rate and rhythm Gastrointestinal: bowel sounds, nl liver, spleen, non-tender, other ((+) murphys sign), rebound or guarding (right upper quadrant), soft, tender (right upper quadrant), No ascites, No distended, No firm, No hepatomegaly, No mass Musculoskeletal: nl extremities to inspection, nl gait and stance Extremities: normal pulses Neurological: [employer] CROPS II-XII intact, nl mental status, nl speech, nl strength Skin: nl turgor, No rash or lesions Lymph: nl lymph nodes Results Result Diagram: 01/07/1772401/07/17724 Results 24 hrs Laboratory Tests Test 01/07/17 07:25 01/07/17 07:30 01/07/17 10:12 Alanine Aminotransferase (ALT/SGPT) 32 Albumin 4.4 Albumin/Globulin Ratio 1.33 Alkaline Phosphatase 123 H Anion Gap 18 H Aspartate Amino Transf (AST/SGOT) 28 Basophils # 0.1 Basophils % 0.6 Blood Urea Nitrogen 7 Calcium Level 9.4 Carbon Dioxide Level 25 Chloride Level 102 Creatinine 0.61 Direct Bilirubin 0.00 Eosinophils # 0.0 Eosinophils % 0.2 Globulin 3.30 H Glucose Level 88 Hematocrit 40.1 # Hemoglobin 13.4 Indirect Bilirubin 0.3 Lipase 109 Lymphocytes # 1.0 Lymphocytes % 11.8 L Mean Corpuscular Hemoglobin 29.3 Mean Corpuscular Hemoglobin Concent 33.4 Mean Corpuscular Volume 87.7 Mean Platelet Volume 9.5 # Monocytes # 0.4 Monocytes % 4.1 Neutrophils # 7.1 Neutrophils % 82.8 H Nucleated Red Blood Cells # 0.0 Nucleated Red Blood Cells % 0.0 Platelet Count 256 Potassium Level 3.8 Red Blood Count 4.57 # Red Cell Distribution Width 12.1 Sodium Level 141 Total Bilirubin 0.3 Total Protein 7.7 White Blood Count 8.6 Urine Bacteria FEW Urine Bilirubin NEGATIVE Urine Clarity CLEAR Urine Color LT. YELLOW Urine Epithelial Cells FEW Urine Glucose NEGATIVE Urine Hemoglobin 1+ H Urine Ketones NEGATIVE Urine Leukocyte Esterase NEGATIVE Urine Microscopic RBC 0-2 Urine Microscopic WBC 0-2 Urine Nitrite NEGATIVE Urine Specific [place] <=1.005 L Urine Total Protein NEGATIVE Urine Urobilinogen 0.2 E.U./dL Urine pH 6.0 Beta HCG, Quantitative < 2.4 Medications Medications Current Medications Potassium Chloride/Dextrose/ Sod Cl (D5-1/2ns + KCl 20 Meq) 1,000 ml @ 100 mls/ hr Q10H IV Last administered on 01/07/17 15:31; Admin Dose 100 MLS/HR; Start 01/07/17 at 13:25 Ondansetron HCl (Zofran Inj) 4 mg Q6H PRN IV NAUSEA AND/OR VOMITING Last administered on 01/07/17 15:31; Admin Dose 4 MG; Start 01/07/17 at 13:30 Acetaminophen/ Hydrocodone Bitart ([place] (5/325)) 1 tab Q6H PRN PO MODERATE PAIN LEVEL 4-6; Start 01/07/17 at 13:30 Acetaminophen/ Hydrocodone Bitart ([place] (5/325)) 2 tab Q6H PRN PO SEVERE PAIN LEVEL 7-10; Start 01/07/17 at 13:30 Morphine Sulfate (morphine) 2 mg Q4H PRN IV SEVERE PAIN LEVEL 7-10 Last administered on 01/07/17 15:32; Admin Dose 2 MG; Start 01/07/17 at 13:30 Docusate Sodium (Colace) 100 mg Q12H PRN PO CONSTIPATION; Start 01/07/17 at 13: 30 Magnesium Hydroxide (Milk Of Mag) 30 ml DAILY PRN PO CONSTIPATION; Start at 13:30 Bisacodyl 10 mg 10 mg DAILY PRN [place] CONSTIPATION; Start 01/07/17 at 13:30 Ampicillin Sodium/ Sulbactam Sodium (Unasyn 1.5gm/NS (Pmx)) 50 ml @ 100 mls/hr Q6 IVPB ; Start 01/07/17 at 18:00 ARINA LU MD Jan 07, 2017 16:17
[2017-01-07] MEDS: AMPICILLIN/SULB 1.5GM/NS (PMX) 50 ML IVPB SCH ×2 (17:43→23:32)
[2017-01-07 19:57] VITALS: BP 108/64; PULSE 72; RESP 18
[2017-01-07 20:26] VITALS: BP 105/58; RESP 19
[2017-01-07] MEDS ORDERED: CEFAZOLIN 2 GM/50 ML (PMX) 50 ML IVPB ONE (22:00)
[2017-01-08] VITALS (20 sets, daily range): BP systolic 100–117; BP diastolic 55–67; PULSE 62–80; RESP 13–22
[2017-01-08] MEDS: morphine 2 MG INJ IV PRN (03:58)
[2017-01-08 05:08] LABS: ADD SCAN DIFF NO
[2017-01-08 05:18] LABS: BASOPHILS % 0.4 % (0.0-2.0); EOSINOPHILS % 0.3 % (0.0-7.0); HEMATOCRIT 37.1 % (37.0-47.0); HEMOGLOBIN 12.3 g/dl (12.0-16.0); LYMPHOCYTES % 10.1 % (15.0-51.0); MEAN CORPUSCULAR HEMOGLOBIN 28.9 pg (29.0-33.0); MEAN CORPUSCULAR HGB CONC 33.2 g/dl (32.0-37.0); MEAN CORPUSCULAR VOLUME 87.3 fl (82.0-101.0); MEAN PLATELET VOLUME 9.4 fl (7.4-10.4); MONOCYTE # 1.2 10^3/ul (0.3-0.9); MONOCYTES % 11.3 % (0.0-11.0); NEUTROPHILS % 77.4 % (39.0-77.0); PLATELET COUNT 212 10^3/UL (140-415); RED BLOOD COUNT 4.25 10^6/ul (4.20-5.40); RED CELL DISTRIBUTION WIDTH 12.4 % (11.5-14.5); WHITE BLOOD COUNT 10.3 10^3/ul (4.8-10.8)
[2017-01-08] MEDS: AMPICILLIN/SULB 1.5GM/NS (PMX) 50 ML IVPB SCH ×4 (05:18→23:25)
[2017-01-08 05:42] LABS: ALBUMIN 3.6 g/dl (3.3-4.9)
[2017-01-08 05:43] LABS: POTASSIUM 3.6 mmol/L (3.5-5.1)
[2017-01-08 05:45] LABS: ALBUMIN/GLOBULIN RATIO 1.28; BILIRUBIN,INDIRECT 0.4 mg/dl (0-1.1); BILIRUBIN,TOTAL 0.4 mg/dl (0.2-1.3); CREATININE 0.59 mg/dl (0.44-1.00); TOTAL PROTEIN 6.4 g/dl (6.1-8.1)
[2017-01-08 05:46] LABS: CALCIUM 8.4 mg/dl (8.4-10.2); CHOL/HDL RATIO 1.8 RATIO; MAGNESIUM 1.7 mg/dl (1.7-2.5); PHOSPHORUS 3.2 mg/dl (2.5-4.9)
[2017-01-08 05:56] LABS: T3 UPTAKE 33.2 % (23.5-40.5)
[2017-01-08] MEDS ORDERED: CEFAZOLIN 2 GM/50 ML (PMX) 50 ML IVPB ONE (06:00)
[2017-01-08 06:10] LABS: THYROID STIMULATING HORMONE 0.892 MIU/L (0.465-4.680)
--- NOTE | 2017-01-08 06:56 | CONS ---
DATE OF ADMISSION: 01/07/2017 DATE OF CONSULTATION: 01/07/2017 HISTORY OF PRESENT ILLNESS: Ms. Winston is a 36-year-old female who presented to the ER today due to acute onset of right upper quadrant pain with nausea and vomiting. No fevers or chills. The pat kiana has had cholelithiasis in the past and has had multiple episodes of biliary colic; however, she was at the time and never had surgery. She now complains of more serious pain and present ed to the ER. PAST MEDICAL HISTORY: Cholelithiasis. PAST SURGICAL HISTORY: . MEDICATIONS: None. ALLERGIES: NO KNOWN DRUG ALLERGIES. SOCIAL HISTORY: She drinks occasionally. Denies smoking or drug use. PHYSICAL EXAMINATION: GENERAL: She is a well-nourished, well-developed female, in no apparent distress. VITAL SIGNS: She is currently afebrile. Vital signs are stable. CHEST: Clear to auscultation bilaterally. HEART: Regular rhythm. ABDOMEN: Soft, nondistended, but significant right upper quadrant tenderness. LABORATORY DATA: Reveal a white count of 9, hematocrit of 40, and platelets of 256. Sodium 141, po tassium 3.8, chloride 102, CO2 25, BUN and creatinine 7 and 0.6, with a glucose of 88. LFTs are wi thin normal limits. Ultrasound was consistent with cholecystitis, and mild to moderate bile duct di latation. ASSESSMENT AND PLAN: Ms. Evangelista is a 36-year-old female with acute cholecystitis. She should unde rgo laparoscopic, possible open, cholecystectomy, and possible cholangiogram tomorrow morning. All benefits, risks, alternatives were discussed in detail. All questions were answered. The patient e lects to proceed. Dictated By: ISRRAEL REBOLLEDO/NTS Conf#: [id number] DID#: [id number]
[2017-01-08] MEDS ORDERED: BUPIVACAINE 0.25%/EPI (SDV) 30 ML INJ ONE (07:17)
[2017-01-08] MEDS ORDERED: LIDOCAINE 1% (STERILE-PAK) 30 ML INJ ONE (07:17)
[2017-01-08] MEDS ORDERED: ONDANSETRON 4 MG INJ IV PRN ×2 (08:00→09:00)
[2017-01-08] MEDS ORDERED: ACETAMINOPHEN 325 MG TAB PO PRN (08:00)
[2017-01-08] MEDS ORDERED: HYDROmorphONE 1 MG/ML SYG IV PRN (08:00)
[2017-01-08] MEDS ORDERED: IBUPROFEN 600 MG TAB PO PRN (08:00)
[2017-01-08] MEDS ORDERED: OXYCODONE/ACETAMINOPHEN (5/325) TAB PO PRN ×3 (08:00→09:00)
[2017-01-08] MEDS ORDERED: SUCCINYLCHOLINE CHLORIDE 100 MG/5 ML SYG IV ONE (08:05)
[2017-01-08] MEDS ORDERED: FENTAnyl 50 MCG/ML VIAL ONE ×2 (08:05→08:51)
[2017-01-08] MEDS ORDERED: LIDOCAINE 2% (SDV) 5 ML INJ ONE (08:05)
[2017-01-08] MEDS ORDERED: PROPOFOL 20 ML ONE (08:05)
[2017-01-08] MEDS ORDERED: MIDAZOLAM 1 MG/ML 2 ML INJ ONE (08:05)
[2017-01-08] MEDS ORDERED: ONDANSETRON 4 MG INJ ONE (08:17)
[2017-01-08] MEDS ORDERED: ROCURONIUM 50 MG INJ ONE (08:17)
[2017-01-08] MEDS ORDERED: METOCLOPRAMIDE 10 MG INJ ONE (08:18)
[2017-01-08] MEDS ORDERED: DEXAMETHASONE 4 MG/ML 1 ML INJ ONE (08:18)
[2017-01-08] MEDS ORDERED: PHENYLephrine (100 MCG/ML) 5ML SYG ONE (08:28)
[2017-01-08] MEDS ORDERED: GLYCOPYRROLATE 1 MG INJ ONE (08:49)
[2017-01-08] MEDS ORDERED: NEOSTIGMINE 3 MG/3 ML SYRINGE ONE (08:49)
[2017-01-08] MEDS ORDERED: KETOROLAC 30 MG INJ ONE (08:51)
[2017-01-08] MEDS ORDERED: PROCHLORPERAZINE 10 MG INJ IV PRN (09:00)
[2017-01-08] MEDS ORDERED: DIPHENHYDRAMINE 50 MG INJ IV PRN (09:00)
[2017-01-08] MEDS ORDERED: HYDROmorphONE (0.2 MG/ML) 10ML SYG IV PRN ×2 (09:00)
[2017-01-08] MEDS ORDERED: FENTAnyl 50 MCG/ML VIAL IV PRN (09:00)
[2017-01-08] MEDS ORDERED: MEPERIDINE 25 MG INJ IV PRN (09:00)
[2017-01-08] MEDS: HYDROCODONE/APAP (5/325) TAB PO PRN ×2 (11:51→22:22)
[2017-01-08] MEDS: D5-NS + KCL 20 MEQ 1,000 ML IV SCH ×2 (13:50→17:27)
--- NOTE | 2017-01-08 14:06 | PN ---
Date/Time of Note Date/Time of Note DATE: 01/08/17 TIME: 13:55 Assessment/Plan VTE Prophylaxis VTE Prophylaxis Intervention: SCD's Lines/Catheters IV Catheter Type (from Nrsg): Peripheral IV Assessment/Plan Chief Complaint/Hosp Course Assessment/Plan 1. cholecystitis. Patient s/p lap-lyssa. cont with post-op care and analgesics 2. suspect choledocholithiasis. GI following. follow up with MRCP DVT prophylaxis: SCD DISPO/PLAN: less pain reported. cont diet per surgeon. follow up mrcp. d/c when medically stable and cleared by consultants Discussed plan of care with Dr. Benites Problems: Subjective 24 Hr Interval Summary Free Text/Dictation no s/s of distress. comfortable at this time Exam/Review of Systems Vital Signs Vitals Vital Signs Date Time Temp Pulse Resp B/P Pulse Ox O2 Delivery O2 Flow Rate FiO2 01/08/17 11:30 98.0 62 16 105/61 99 Room Air 01/08/17 09:19 8.0 Intake and Output 01/07/17 01/07/17 01/08/17 14:59 22:59 06:59 Intake Total 400 ml 1550 ml Output Total 1200 ml Balance 400 ml 350 ml Exam General: No acute signs or symptoms of distress Eyes: pupils equal round, Anicteric sclera Neck: Supple nontender, no JVD Cardiac: S1, S2 auscultated, regular rhythm and rate Pulmonary: No coarse rhonchi or breathing auscultated GI: minimally tender on palpation Extremities: No edema bilateral lower extremities Skin: surgical site cdi Neurologic: Alert to person place and time and situation Results Result Diagram: 01/08/17 0456 01/08/17 0456 Results 24 hrs Laboratory Tests Test 01/08/17 04:56 Alanine Aminotransferase (ALT/SGPT) 31 Albumin 3.6 Albumin/Globulin Ratio 1.28 Alkaline Phosphatase 96 Anion Gap 16 Aspartate Amino Transf (AST/SGOT) 30 Basophils # 0.0 Basophils % 0.4 Blood Urea Nitrogen 4 L Calcium Level 8.4 Carbon Dioxide Level 26 Chloride Level 102 Cholesterol Level 139 Cholesterol/HDL Ratio 1.8 Creatinine 0.59 Direct Bilirubin 0.00 Eosinophils # 0.0 Eosinophils % 0.3 Free Thyroxine Index 2.36 Globulin 2.80 Glucose Level 108 HDL Cholesterol 75 Hematocrit 37.1 Hemoglobin 12.3 Hemoglobin A1c 5.4 Indirect Bilirubin 0.4 LDL Cholesterol, Calculated 52 Lymphocytes # 1.0 Lymphocytes % 10.1 L Magnesium Level 1.7 Mean Corpuscular Hemoglobin 28.9 L Mean Corpuscular Hemoglobin Concent 33.2 Mean Corpuscular Volume 87.3 Mean Platelet Volume 9.4 Monocytes # 1.2 H Monocytes % 11.3 H Neutrophils # 8.0 H Neutrophils % 77.4 H Nucleated Red Blood Cells # 0.0 Nucleated Red Blood Cells % 0.0 Phosphorus Level 3.2 Platelet Count 212 Potassium Level 3.6 Red Blood Count 4.25 Red Cell Distribution Width 12.4 Sodium Level 140 Thyroid Stimulating Hormone (TSH) 0.892 Thyroxine (T4) 7.1 Total Bilirubin 0.4 Total Protein 6.4 # Triglycerides Level 62 Triiodothyronine (T3) Uptake 33.2 White Blood Count 10.3 Medications Medications Current Medications Ondansetron HCl (Zofran Inj) 4 mg Q6H PRN IV NAUSEA AND/OR VOMITING Last administered on 01/07/17 15:31; Admin Dose 4 MG; Start 01/07/17 at 13:30 Acetaminophen/ Hydrocodone Bitart ([place] (5/325)) 1 tab Q6H PRN PO MODERATE PAIN LEVEL 4-6; Start 01/07/17 at 13:30 Acetaminophen/ Hydrocodone Bitart ([place] (5/325)) 2 tab Q6H PRN PO SEVERE PAIN LEVEL 7-10 Last administered on 01/08/17 11:51; Admin Dose 2 TAB; Start at 13:30 Morphine Sulfate (morphine) 2 mg Q4H PRN IV SEVERE PAIN LEVEL 7-10 Last administered on 01/08/17 03:58; Admin Dose 2 MG; Start 01/07/17 at 13:30 Docusate Sodium (Colace) 100 mg Q12H PRN PO CONSTIPATION; Start 01/07/17 at 13: 30 Magnesium Hydroxide (Milk Of Mag) 30 ml DAILY PRN PO CONSTIPATION; Start at 13:30 Bisacodyl 10 mg 10 mg DAILY PRN [place] CONSTIPATION; Start 01/07/17 at 13:30 Ampicillin Sodium/ Sulbactam Sodium (Unasyn 1.5gm/NS (Pmx)) 50 ml @ 100 mls/hr Q6 IVPB Last administered on 3/18/17at 11:51; Admin Dose 100 MLS/HR; Start at 18:00 Ondansetron HCl (Zofran Inj) 4 mg Q6H PRN IV NAUSEA AND/OR VOMITING; Start at 08:00 Hydromorphone HCl (Dilaudid) 0.5 mg Q4H PRN IV BREAKTHROUGH PAIN; Start at 08:00 Acetaminophen (Tylenol Tab) 650 mg Q6H PRN PO PAIN AND OR ELEVATED TEMP; Start 01/08/17 at 08:00 Ibuprofen (Motrin) 600 mg Q6H PRN PO PAIN LEVEL 1-5; Start 01/08/17 at 08:00 Oxycodone/ Acetaminophen 1 tab 1 tab Q6H PRN PO PAIN LEVEL 6-10; Start at 08:00 Potassium Chloride/Dextrose/ Sod Cl (D5-NS + KCl 20 Meq) 1,000 ml @ 100 mls/hr Q10H IV Last administered on 01/08/17t 13:50; Admin Dose 100 MLS/HR; Start at 07:43 Enoxaparin Sodium (Lovenox) 40 mg DAILY@07 SC ; Start 01/09/17 at 07:00 JUAN MANUEL EMMANUEL Jan 08, 2017 14:05
--- NOTE | 2017-01-08 14:07 | HP ---
DATE OF ADMISSION: 01/07/2017 CHIEF COMPLAINT: Abdominal pain. HISTORY OF PRESENT ILLNESS: This is a 36-year-old female with reported past medical history of diab etes and recent post-delivery on ____, who came to [facility] with reports of abdominal pain. According to the patient, she started experiencing pain in her abdomen at 2:00 p.m. the day prior to admission. She did report that was in the epigastric area radiating t o her right upper abdominal quadrant and to her back. She reports that she had a similar pain like this 5 years ago. She did also state that she was diagnosed with cholelithiasis during her pregnanc y last year. Due to her increased pain, she did come to [facility] for further ev aluation. She did report having some nausea but no vomiting and subjective fevers. She did have a gallbladder ultrasound done on 01/07/2017 that did show cholelithiasis with moderate gallbladder wal l thickening suggestive of gallbladder wall edema. Findings also notably can be seen in acute lyssa cystitis. She also did have mild to moderate common bile duct dilation. From her laboratories, no leukocytosis noted. She did also have an AST of 28, ALT of 32 and alkaline phosphatase of 123. Lip ase noted at 109. She has a low grade fever of 99.7. She currently reports having pain in her abdo men 3 to 4/10 intensity, still radiating to her right upper quadrant and back. She denies any dysur ia. We will follow. We will continue further workup for the aforementioned issues. MEDICAL AND SURGICAL HISTORY: 1. Reported on ____. 2. Gastritis. 3. Gestational diabetes. 4. History of cholelithiasis. SOCIAL HISTORY: Patient denies any cigarette smoking, alcohol consumption or illicit drug use. FAMILY HISTORY: Patient does report a strong family history of diabetes. ALLERGIES: NO KNOWN ALLERGIES. REVIEW OF SYSTEMS: A 12-point review of systems is obtained and is entirely negative except that me ntioned in the history of present illness. PHYSICAL EXAMINATION: VITAL SIGNS: Temperature 99.1, pulse 56, respiratory rate 16, blood pressure 103/60, pulse oximetry is 98% on room air. GENERAL: This is a 36-year-old female, appears stated age, only in mild distress secondary to abdom inal pain. EYES: Pupils equal, round and reactive to light. Anicteric sclerae. NECK: Supple, nontender, no JVD. CARDIOVASCULAR: S1, S2 auscultated, regular rate. PULMONARY: Clear to auscultation bilaterally. No wheezing or rhonchi. ABDOMEN: Soft, minimally tender upon palpation, more in the right upper abdominal quadrant. SKIN: Warm, dry, and intact. NEUROLOGIC: Alert, oriented x3. LABORATORY DATA: Sodium 141, potassium 3.8, BUN is 7, creatinine is 0.61. WBC is 8.6, hemoglobin i s 13.4, hematocrit 40.1 and platelets are 256. IMAGIN. Chest x-ray done on 01/07/2017 did show no acute disease. 2. Gallbladder ultrasound done on 01/07/2017 did show cholelithiasis with moderate gallbladder wall thickening suggestive of gallbladder wall edema and findings can be seen in acute cholecystitis. M ild to moderate common bile duct dilation. IMPRESSION AND PLAN: Cholecystitis with suspect choledocholithiasis. 1. Surgeon was consulted. We will also get histopath tech involved. Continue IV hydration. K eep n.p.o. for now. Analgesics as needed. 2. History of gestational diabetes. Follow up on A1c. Will start on insulin regimen pending diag nostic findings. 3. Cholelithiasis. We will give IV hydration. 4. Deep venous thrombosis prophylaxis on sequential compression devices. ADMISSION PROCESS TIME: 40 minutes. Discussed plan of care with Dr. Benites. Dictated By: JUAN MANUEL EMMANUEL [employer]ER for ASMITA BENITES MD RR/NTS Conf#: [id number] DID#: [id number]
--- NOTE | 2017-01-08 15:53 | PN ---
Date/Time of Note Date/Time of Note DATE: 01/08/17 TIME: 15:48 Assessment/Plan VTE Prophylaxis VTE Prophylaxis Intervention: SCD's Lines/Catheters IV Catheter Type (from Nrsg): Peripheral IV Assessment/Plan Assessment/Plan Assessment : RUQ abdominal pain/nausea & vomiting Cholelithiasis/Dilated CBD/Normal LFT's Cholecystitis/POST LAP NAKUL S/P section 2016 Plan: Surgery management We will sign off and follow as needed Subjective 24 Hr Interval Summary Free Text/Dictation Course reviewed with nursing staff Patient underwent laparoscopic cholecystectomy last night I see no evidence of intraoperative cholangiogram Liver function tests are now normal Patient complains of incisional pain Otherwise feeling well We will hold off on any GI workup or intervention at the present time allowing surgery to manage the patient postoperatively We will sign off and follow upon request Exam/Review of Systems Vital Signs Vitals Vital Signs Date Time Temp Pulse Resp B/P Pulse Ox O2 Delivery O2 Flow Rate FiO2 01/08/17 11:30 98.0 62 16 105/61 99 Room Air 01/08/17 09:19 8.0 Intake and Output 01/07/17 01/07/17 01/08/17 15:00 23:00 07:00 Intake Total 400 ml 1550 ml Output Total 1200 ml Balance 400 ml 350 ml Exam Constitutional: alert, oriented, well developed Psych: nl mood/affect, no complaints Head: atraumatic, normocephalic Eyes: EOMI, PERRL, nl conjunctiva, nl lids, nl sclera ENMT: nl external ears & nose, nl lips & teeth, nl nasal mucosa & septum Neck: non-tender, supple Respiratory: clear to auscultation, normal air movement Cardiovascular: nl pulses, regular rate and rhythm Gastrointestinal: bowel sounds, distended, nl liver, spleen, soft, tender ( Incisional tenderness), No rebound or guarding Musculoskeletal: nl extremities to inspection, nl gait and stance Extremities: normal pulses Neurological: SIDE BOSS II-XII intact, nl mental status, nl speech, nl strength Skin: nl turgor, No rash or lesions Lymph: nl lymph nodes Results Result Diagram: 01/08/17 0456 01/08/17 0456 Results 24 hrs Laboratory Tests Test 01/08/17 04:56 Alanine Aminotransferase (ALT/SGPT) 31 Albumin 3.6 Albumin/Globulin Ratio 1.28 Alkaline Phosphatase 96 Anion Gap 16 Aspartate Amino Transf (AST/SGOT) 30 Basophils # 0.0 Basophils % 0.4 Blood Urea Nitrogen 4 L Calcium Level 8.4 Carbon Dioxide Level 26 Chloride Level 102 Cholesterol Level 139 Cholesterol/HDL Ratio 1.8 Creatinine 0.59 Direct Bilirubin 0.00 Eosinophils # 0.0 Eosinophils % 0.3 Free Thyroxine Index 2.36 Globulin 2.80 Glucose Level 108 HDL Cholesterol 75 Hematocrit 37.1 Hemoglobin 12.3 Hemoglobin A1c 5.4 Indirect Bilirubin 0.4 LDL Cholesterol, Calculated 52 Lymphocytes # 1.0 Lymphocytes % 10.1 L Magnesium Level 1.7 Mean Corpuscular Hemoglobin 28.9 L Mean Corpuscular Hemoglobin Concent 33.2 Mean Corpuscular Volume 87.3 Mean Platelet Volume 9.4 Monocytes # 1.2 H Monocytes % 11.3 H Neutrophils # 8.0 H Neutrophils % 77.4 H Nucleated Red Blood Cells # 0.0 Nucleated Red Blood Cells % 0.0 Phosphorus Level 3.2 Platelet Count 212 Potassium Level 3.6 Red Blood Count 4.25 Red Cell Distribution Width 12.4 Sodium Level 140 Thyroid Stimulating Hormone (TSH) 0.892 Thyroxine (T4) 7.1 Total Bilirubin 0.4 Total Protein 6.4 # Triglycerides Level 62 Triiodothyronine (T3) Uptake 33.2 White Blood Count 10.3 Medications Medications Current Medications Ondansetron HCl (Zofran Inj) 4 mg Q6H PRN IV NAUSEA AND/OR VOMITING Last administered on 01/07/17 15:31; Admin Dose 4 MG; Start 01/07/17 at 13:30 Acetaminophen/ Hydrocodone Bitart (Spring (5/325)) 1 tab Q6H PRN PO MODERATE PAIN LEVEL 4-6; Start 01/07/17 at 13:30 Acetaminophen/ Hydrocodone Bitart (Spring (5/325)) 2 tab Q6H PRN PO SEVERE PAIN LEVEL 7-10 Last administered on 01/08/17 11:51; Admin Dose 2 TAB; Start at 13:30 Morphine Sulfate (morphine) 2 mg Q4H PRN IV SEVERE PAIN LEVEL 7-10 Last administered on 01/08/17 03:58; Admin Dose 2 MG; Start 01/07/17 at 13:30 Docusate Sodium (Colace) 100 mg Q12H PRN PO CONSTIPATION; Start 01/07/17 at 13: 30 Magnesium Hydroxide (Milk Of Mag) 30 ml DAILY PRN PO CONSTIPATION; Start at 13:30 Bisacodyl 10 mg 10 mg DAILY PRN OR CONSTIPATION; Start 01/07/17 at 13:30 Ampicillin Sodium/ Sulbactam Sodium (Unasyn 1.5gm/NS (Pmx)) 50 ml @ 100 mls/hr Q6 IVPB Last administered on 01/08/17 11:51; Admin Dose 100 MLS/HR; Start at 18:00 Ondansetron HCl (Zofran Inj) 4 mg Q6H PRN IV NAUSEA AND/OR VOMITING; Start at 08:00 Hydromorphone HCl (Dilaudid) 0.5 mg Q4H PRN IV BREAKTHROUGH PAIN; Start at 08:00 Acetaminophen (Tylenol Tab) 650 mg Q6H PRN PO PAIN AND OR ELEVATED TEMP; Start 01/08/17 at 08:00 Ibuprofen (Motrin) 600 mg Q6H PRN PO PAIN LEVEL 1-5; Start 01/08/17 at 08:00 Oxycodone/ Acetaminophen 1 tab 1 tab Q6H PRN PO PAIN LEVEL 6-10; Start at 08:00 Potassium Chloride/Dextrose/ Sod Cl (D5-NS + KCl 20 Meq) 1,000 ml @ 100 mls/hr Q10H IV Last administered on 01/08/17 13:50; Admin Dose 100 MLS/HR; Start at 07:43 Enoxaparin Sodium (Lovenox) 40 mg DAILY@07 SC ; Start 01/09/17 at 07:00 ARINA LU MD Jan 08, 2017 15:52
[2017-01-09] MEDS: D5-NS + KCL 20 MEQ 1,000 ML IV SCH ×2 (03:43→13:35)
[2017-01-09 05:23] LABS: ADD SCAN DIFF NO
[2017-01-09 05:30] LABS: BASOPHILS % 0.4 % (0.0-2.0); EOSINOPHILS % 0.4 % (0.0-7.0); HEMATOCRIT 35.2 % (37.0-47.0); HEMOGLOBIN 11.4 g/dl (12.0-16.0); LYMPHOCYTES # 1.2 10^3/ul (0.8-2.9); LYMPHOCYTES % 15.3 % (15.0-51.0); MEAN CORPUSCULAR HEMOGLOBIN 28.9 pg (29.0-33.0); MEAN CORPUSCULAR HGB CONC 32.4 g/dl (32.0-37.0); MEAN CORPUSCULAR VOLUME 89.3 fl (82.0-101.0); MEAN PLATELET VOLUME 9.8 fl (7.4-10.4); MONOCYTE # 0.8 10^3/ul (0.3-0.9); MONOCYTES % 9.4 % (0.0-11.0); PLATELET COUNT 196 10^3/UL (140-415); RED BLOOD COUNT 3.94 10^6/ul (4.20-5.40); RED CELL DISTRIBUTION WIDTH 12.2 % (11.5-14.5); WHITE BLOOD COUNT 8.1 10^3/ul (4.8-10.8)
[2017-01-09 05:40] LABS: POTASSIUM 3.8 mmol/L (3.5-5.1)
[2017-01-09 05:43] LABS: CALCIUM 8.3 mg/dl (8.4-10.2); CREATININE 0.62 mg/dl (0.44-1.00)
[2017-01-09] MEDS: AMPICILLIN/SULB 1.5GM/NS (PMX) 50 ML IVPB SCH ×2 (06:10→12:08)
[2017-01-09] MEDS ORDERED: ENOXAPARIN 40 MG/0.4 ML SYG SC SCH (07:00)
[2017-01-09 08:24] VITALS: BP 96/60; RESP 16
[2017-01-09] MEDS ORDERED: SENN-53 PO (11:44)
[2017-01-09] MEDS ORDERED: HYDR-3498 PO (11:44)
--- NOTE | 2017-01-09 11:44 | PDOCDIS ---
Discharge Instructions DIAGNOSIS Discharge Diagnosis: 1. cholelithiasis with cholecystitis HOME CARE INSTRUCTIONS: Diet Instructions: Low Fat /Cholesterol FOLLOW UP/APPOINTMENTS Appointments 1. Follow up with Dr. Doc Faustin in one week JUAN MANUEL EMMANUEL Jan 09, 2017 11:44
[2017-01-09] MEDS ORDERED: SENNA TAB PO PRN (12:00)
--- NOTE | 2017-01-13 18:14 | DS ---
DATE OF ADMISSION: 01/07/2017 DATE OF DISCHARGE: 01/09/2017 CONSULTANTS: 1. Dr. Doc Faustin 2. Dr. Emily Santoro DISCHARGE DIAGNOSES: 1. Cholecystitis. 2. Suspect choledocholithiasis. HOSPITAL COURSE: This is a 36-year-old female with no reported past medical history besides C-secti on on 12/06/2016 who came to [facility] due to reports of abdominal pain. The pat kiana had reported her abdominal pain started at 2:00 p.m. the day prior to admission. She did repor t it was in the epigastric area and radiated to her right upper abdominal quadrant. She did go to [facility] and did have an ultrasound of her abdomen done that did show her to have cholelithiasis with moderate gallbladder wall thickening suggestive of gallbladder wall edema. Fin dings also notably seen in acute cholecystitis. There was also seen mild to moderate common bile du ct dilation. For this issue, she was seen by a olive pitter as well as by a general surgeon. The patient did also undergo laparoscopic cholecystectomy from which she did tolerate well. She wa s also seen by olive pitter. After review by GI consult, there was no elevated LFT and no nee d for any kind of GI intervention at this time. We did continue to monitor the patient. She was ot herwise optimized medically. She was continued on analgesics for her recent cholecystectomy, and sh arlet was advanced on her diet. She did tolerate it well. During her course of stay, she did improve. She was instructed to follow up with surgeon within a week. The plan of care was discussed with e patient, and patient did verbalize her understanding. On the day of discharge, the patient was in stable condition. Discharge physical examination and vital signs are stable. CONDITION: Stable. DISCHARGE PLAN: 1. Diet is low fat, low cholesterol. 2. The patient to follow up with Dr. Doc Faustin in a week. DISCHARGE MEDICATIONS: 1. [place] 5/325 one tablet p.o. q.4 hours as needed for pain. 2. Senna 1 tablet p.o. b.i.d. as needed for constipation. DISCHARGE PROCESS TIME: 40 minutes. Discussed plan of care with Dr. Benites. Dictated By: JUAN MANUEL EMMANUEL [employer] MANAGER for ASMITA BENITES MD RR/JEN Conf#: [id number] DID#: [id number]
== END 2017-01-09 15:35 | disposition home or self-care (01) | DRG 419 ==
LOC: FTE 04:11 → PP2 10:05
PROVIDERS: ADMIT Internal Medicine; ATTEND Internal Medicine
PROC: 0FT44ZZ Resection of Gallbladder, Percutaneous Endoscopic Approach (ICD-10-PCS; principal; 2017-01-08 07:30)
DX: K80.12 Calculus of gallbladder with acute and chronic cholecystitis without obstruction (principal)
CPT/HCPCS: 36415; 71010; 76705; 80048; 80053; 80061; 81001; 81003; 83036; 83690; 83735; 84100; 84436; 84443; 84479; 84702; 85025; 87081; 88304; 93005; 96361; 96374; 96375; 96376; J0295; J0330; J0690; J1100; J1170; J1650; J1885; J2250; J2270; J2370; J2405; J2710; J2765; J3010; J3480; J7030